=== PATIENT | female | born 1960 | race African-American/Black ===

== ENCOUNTER 2023-01-15 09:10 | Emergency (ER) | payer OTHER ==
[~2023-01-15] VITALS: Ht 165.1 cm; Wt 90.9 kg
[2023-01-15 09:16] VITALS: TEMP 99
[2023-01-15] MEDS: EPINEPHrine 1:1,000 [1 MG/ML] VIAL IM ONE (09:26)
[2023-01-15] MEDS: DiphenhydrAMINE HCL 50 MG/ML VIAL IVP ONE (09:26)
[2023-01-15] MEDS: DEXAMETHASONE SOD PHOS 4 MG/ML 5 ML VIAL IVP ONE (09:27)
[2023-01-15] MEDS ORDERED: ACETAMINOPHEN 325 MG TABLET PO PRN (10:30)
[2023-01-15] MEDS ORDERED: MAGNESIUM HYDROXIDE SUSPENSION 30 ML UDCUP PO PRN (10:30)
[2023-01-15] MEDS ORDERED: ONDANSETRON HCL 4 MG/2 ML VIAL IVP PRN (10:30)
[2023-01-15 10:39] LABS: BASOPHILS % (AUTO) 0.4 % (0.0-2.0); EOSINOPHILS % (AUTO) 0.4 % (1.0-6.0); HEMATOCRIT 50.7 % (36-46); HEMOGLOBIN 16.9 g/dL (12.0-16.0); LYMPHOCYTES % (AUTO) 15.2 % (22.0-44.0); MEAN CORPUSCULAR HGB CONC 33.3 G/dL (31.0-37.0); MEAN CORPUSCULAR VOLUME 93 fL (80-100); MONOCYTES # (AUTO) 0.4 K/uL (0.1-1.0); MONOCYTES % (AUTO) 6.8 % (2.0-9.0); NEUTROPHILS % (AUTO) 77.2 % (40.0-70.0); PLATELET COUNT (AUTO) 212 K/uL (150-450); RED BLOOD CELL COUNT(AUTO) 5.43 MIL/uL (4.00-5.20); RED CELL DISTRIBUTION WIDTH 13.5 % (11.5-14.5); WHITE BLOOD COUNT (AUTO) 6.5 K/uL (4.5-11.0)
[2023-01-15 10:45] LABS: COVID AG,FIA SOURCE NASAL SWAB
[2023-01-15 10:48] LABS: CALCIUM, TOTAL 8.6 mg/dL (8.8-10.5); CREATININE 1.66 mg/dL (0.60-1.30); POTASSIUM 4.2 mmol/L (3.5-5.1)
[2023-01-15 11:03] LABS: ALBUMIN 2.9 g/dL (3.4-5.0); BILIRUBIN,TOTAL 0.8 mg/dL (0.1-1.0); THYROID STIMULATING HORMONE 0.62 uIU/mL (0.36-3.74); TOTAL PROTEIN, SERUM 7.6 g/dL (6.4-8.2)
[2023-01-15 11:22] LABS: SARS-COV2 (COVID) ANTIGEN,FIA Negative (Negative)
[2023-01-15 11:40] VITALS: BP 133/64; PULSE 65; RESP 18
[2023-01-15] MEDS ORDERED: HEPARIN SODIUM,PORCINE 5,000 UNITS/ML VIAL SQ SCH (16:00)
[2023-01-15] MEDS ORDERED: FAMOTIDINE 20 MG TABLET PO SCH (21:00)
== END 2023-01-15 12:15 | disposition short-term general hospital (02) ==
LOC: EMS 09:10
DX: T78.40XA Allergy, unspecified, initial encounter (principal); Z20.822 Contact with and (suspected) exposure to COVID-19; X58.XXXA Exposure to other specified factors, initial encounter
CPT/HCPCS: 99285; 93306; 96374; 71045; 96375; 87426; 80053; 84443; 85025; 93005; 96372; J1100; J1200; J0171

== ENCOUNTER 2023-02-15 19:55 | Emergency (ER) | payer OTHER ==
[~2023-02-15] VITALS: Ht 165.1 cm; Wt 91.0 kg
[2023-02-15 20:07] VITALS: BP 156/84; PULSE 100; RESP 20; TEMP 101
[2023-02-15 20:13] LABS: COVID AG,FIA SOURCE NASAL SWAB
[2023-02-15 20:34] LABS: INFLUENZA TYPE A NEGATIVE FOR TYPE A (NEGATIVE); INFLUENZA TYPE B POSITIVE FOR TYPE B (NEGATIVE); SARS-COV2 (COVID) ANTIGEN,FIA Negative (Negative)
[2023-02-15] MEDS ORDERED: GUAIFDM PO (21:15)
[2023-02-15] MEDS ORDERED: BENZ-227 PO (21:15)
[2023-02-15] MEDS ORDERED: OSEL75 PO (21:15)
[2023-02-15] MEDS ORDERED: GuaiFENesin/D-METHORPHAN [SUGAR-FREE] 200-20MG/10 ML SYRUP UDCUP PO ONE (21:15)
[2023-02-15] MEDS ORDERED: ACET-2080 PO (21:15)
[2023-02-15] MEDS ORDERED: IBUP-1554 PO (21:15)
[2023-02-15] MEDS ORDERED: IBUPROFEN 800 MG TABLET PO ONE (21:15)
[2023-02-15] MEDS ORDERED: ACETAMINOPHEN 500 MG TABLET PO ONE (21:15)
== END 2023-02-15 22:26 | disposition home or self-care (01) ==
LOC: EMS 19:56
DX: J06.9 Acute upper respiratory infection, unspecified (principal); Z90.49 Acquired absence of other specified parts of digestive tract; Z20.822 Contact with and (suspected) exposure to COVID-19
CPT/HCPCS: 87804; 99284; Z7502; Z7610